=== PATIENT | female | born 1970 | race Caucasian/White ===

== ENCOUNTER → 2018-05-18 | Outpatient (REF) | payer MEDICARE, MEDICAID ==
[2018-05-18 13:08] LABS: HEMATOCRIT 33.1 % (36.0-47.0)
[2018-05-18 13:11] LABS: PERCENT SATURATION 3.2 % (13.2-45.0)
== END ==
LOC: M LAB REF 11:54
PROVIDERS: ATTEND Nurse Practitioner Adult Health
DX: D64.9 Anemia, unspecified (principal)

== ENCOUNTER 2018-06-02 09:52 | Outpatient (CLI) | payer MEDICARE, MEDICAID ==
[2018-06-02] VITALS (8 sets, daily range): BP systolic 110–155; BP diastolic 62–82
[~2018-06-02] VITALS: Ht 166.4 cm; Wt 107.5 kg
[2018-06-02] MEDS ORDERED: IRON SUCROSE 475 MG in NS 250 ML IV ONE (11:00)
[2018-06-02] MEDS ORDERED: IRON SUCROSE 25 MG in NS 50 ML IV ONE (11:00)
[2018-06-02] MEDS ORDERED: VESI5TAB2 PO (11:34)
[2018-06-02] MEDS ORDERED: LASI20TA3 PO (11:35)
[2018-06-02] MEDS ORDERED: TRAM50TA2 PO (11:35)
[2018-06-02] MEDS ORDERED: ATOR1TAB21 PO (11:36)
== END 2018-06-02 16:20 | disposition home or self-care (01) ==
LOC: M INFU 09:52
PROVIDERS: ATTEND Nurse Practitioner Adult Health
DX: D50.9 Iron deficiency anemia, unspecified (principal)
CPT/HCPCS: 96365; 96366; J1756

== ENCOUNTER → 2018-06-21 | Outpatient (REF) | payer MEDICARE, MEDICAID ==
[~2018-06-21] MED LIST: ATOR1TAB21 PO; LASI20TA3 PO; TRAM50TA2 PO; VESI5TAB2 PO
[2018-06-21 19:08] LABS: APPEARANCE, URINE HAZY (CLEAR); BACTERIA, URINE AUTO NEGATIVE (NEGATIVE); BILIRUBIN, URINE AUTO NEGATIVE (NEGATIVE); BLOOD, URINE BLOOD NEGATIVE (NEGATIVE); COLOR, URINE YELLOW (YELLOW); GLUCOSE, URINE (UA) AUTO NEGATIVE (NEGATIVE); KETONE, URINE AUTO NEGATIVE (NEGATIVE); LEUKOCYTE ESTERASE, URINE AUTO TRACE (NEGATIVE); NITRITE, URINE AUTO NEGATIVE (NEGATIVE); PROTEIN, URINE AUTO NEGATIVE (NEGATIVE); RBC, URINE AUTO 1 /HPF (0-3); SPECIFIC GRAVITY URINE AUTO 1.013 (1.002-1.035); SQUAMOUS EPITHELIAL CELL UR AU 1 /HPF (0-6); UROBILINOGEN, URINE AUTO 0.2 mg/dL (0.0-2.0); WBC, URINE AUTO 6 /HPF (0-3)
== END ==
LOC: M LAB REF 17:01
PROVIDERS: ATTEND Obstetrics & Gynecology
DX: N32.81 Overactive bladder (principal); N39.41 Urge incontinence

== ENCOUNTER → 2018-09-22 | Outpatient (REF) | payer MEDICARE, MEDICAID ==
[~2018-09-22] MED LIST changes: +ADVI200T PO; +INTR1TAB PO; +MYRB25TA PO
[2018-09-22 18:28] LABS: PERCENT SATURATION 4.6 % (13.2-45.0)
== END ==
LOC: M LAB REF 17:50
PROVIDERS: ATTEND Internal Medicine
DX: D64.9 Anemia, unspecified (principal)

== ENCOUNTER 2018-09-27 08:54 | Outpatient (CLI) | payer MEDICARE, MEDICAID ==
[~2018-09-27] VITALS: Ht 166.4 cm; Wt 107.5 kg
[~2018-09-27 08:54] MED LIST changes: -ADVI200T PO
[2018-09-27 09:04] VITALS: BP 178/85
[2018-09-27 10:00] VITALS: BP 138/64
[2018-09-27] MEDS ORDERED: IRON SUCROSE 25 MG in NS 50 ML IV ONE (10:00)
[2018-09-27] MEDS ORDERED: IRON SUCROSE 475 MG in NS 250 ML IV ONE (11:00)
[2018-09-27 11:15] VITALS: BP 136/73
[2018-09-27 12:15] VITALS: BP 160/73
[2018-09-27 13:15] VITALS: BP 142/67
[2018-09-27] MEDS ORDERED: VESI5TAB2 PO (14:30)
[2018-09-27 14:40] VITALS: BP 146/80
== END 2018-09-27 14:40 | disposition home or self-care (01) ==
LOC: M INFU 08:54
PROVIDERS: ATTEND Internal Medicine
DX: D50.9 Iron deficiency anemia, unspecified (principal)
CPT/HCPCS: 96365; 96366; J1756

== ENCOUNTER 2018-09-30 05:40 | Day surgery (SDC) | payer MEDICARE, MEDICAID ==
[2018-09-30] VITALS (8 sets, daily range): BP systolic 114–141; BP diastolic 59–91
[~2018-09-30] VITALS: Ht 170.2 cm; Wt 105.0 kg
[2018-09-30] MEDS ORDERED: LR 1,000 ML IV SCH ×2 (06:00→13:00)
[2018-09-30] MEDS ORDERED: LIDOCAINE 1% MDV 20ML VIAL SQ PRN (06:00)
[2018-09-30 06:15] LABS: HEMATOCRIT 38.4 % (36.0-47.0); HEMOGLOBIN 11.2 g/dl (12.0-15.5); MEAN CORPUSCULAR HEMOGLOBIN 20.1 pg (27.0-33.0); MEAN CORPUSCULAR HGB CONC 29.2 g/dl (32.0-36.5); MEAN CORPUSCULAR VOLUME 68.9 fl (80.0-96.0); PLATELET COUNT, AUTOMATED 426 10^3/uL (150-450); RED BLOOD COUNT 5.57 10^6/uL (4.00-5.40); WHITE BLOOD COUNT 6.8 10^3/uL (4.0-10.0)
[2018-09-30 06:52] LABS: URINE PREG TEST NEGATIVE (NEGATIVE)
[2018-09-30] MEDS ORDERED: METHYLENE BLUE 0.5% (5MG/ML) 10 ML AMP (PROVAYBLUE)(Q9968 PER 1MG) As Ordered ONE (06:54)
[2018-09-30] MEDS ORDERED: LIDOCAINE 2% INJ 100 MG/5 ML SDV (FOR ANES.) As Ordered ONE (07:12)
[2018-09-30] MEDS ORDERED: ROCURONIUM BROMIDE 50 MG/5 ML VIAL As Ordered ONE ×3 (07:12→10:21)
[2018-09-30] MEDS ORDERED: dexameTHASONE 4 MG/ML 1ML VIAL (J1100) As Ordered ONE (07:12)
[2018-09-30] MEDS ORDERED: ONDANSETRON 4MG/2ML VIAL (J2405) As Ordered ONE (07:12)
[2018-09-30] MEDS ORDERED: PROPOFOL 200 MG/20 ML VIAL As Ordered ONE (07:12)
[2018-09-30] MEDS ORDERED: fentaNYL 250 MCG/5 ML INJECTION (J3010) As Ordered ONE (07:13)
[2018-09-30] MEDS ORDERED: MIDAZOLAM INJ 2 MG/2 ML VIAL (J2250) As Ordered ONE (07:13)
[2018-09-30] MEDS ORDERED: KETOROLAC 60 MG/2 ML VIAL (J1885) As Ordered ONE (08:25)
[2018-09-30] MEDS ORDERED: SUGAMMADEX SODIUM 500 MG/5 ML VIAL (BRIDION) As Ordered ONE (08:26)
[2018-09-30] MEDS ORDERED: ePHEDrine SULFATE 25 MG/5 ML(5MG/ML) SYRINGE As Ordered ONE (09:47)
[2018-09-30] MEDS ORDERED: ceFAZolin 1GM INJ (J0690 PER 500MG) As Ordered ONE (11:48)
[2018-09-30] MEDS ORDERED: PHENYLephrine HCL 500 MCG/5 ML (100MCG/ML) SYRINGE (J2370) As Ordered ONE (11:51)
[2018-09-30] MEDS ORDERED: fentaNYL 100 MCG/2 ML INJECTION (J3010) As Ordered ONE (12:09)
[2018-09-30] MEDS ORDERED: MORPHINE 1MG/ML IN 0.9% NACL 100ML IV BAG As Ordered ONE (12:51)
[2018-09-30] MEDS ORDERED: NALBUPHINE HCL 10 MG/ML AMP (J2300) IV PRN (13:00)
[2018-09-30] MEDS ORDERED: fentaNYL 100 MCG/2 ML INJECTION (J3010) IV PRN (13:00)
[2018-09-30] MEDS ORDERED: EPIDURAL/PCA KEYS XX PRN (13:00)
[2018-09-30] MEDS ORDERED: PERCOCET 5MG/325MG TAB PO PRN (13:00)
[2018-09-30] MEDS ORDERED: NALOXONE INJ 0.4 MG/1 ML VIAL (J2310) IV PRN (13:00)
[2018-09-30] MEDS ORDERED: MORPHINE 1MG/ML IN 0.9% NACL 100ML IV BAG IV PRN (13:00)
[2018-09-30] MEDS ORDERED: ONDANSETRON 4MG/2ML VIAL (J2405) IV PRN (13:00)
[2018-09-30] MEDS ORDERED: diphenhydrAMINE INJ 50MG/ML VIAL (J1200) IV PRN (13:00)
[2018-09-30] MEDS: LR 1,000 ML IV SCH (13:15)
[2018-09-30] MEDS ORDERED: IBUPROFEN 600 MG TAB PO PRN (13:15)
[2018-09-30] MEDS ORDERED: traMADol 50 MG TAB PO PRN (13:15)
[2018-09-30] MEDS: FUROSEMIDE 20 MG TAB PO SCH (15:25)
[2018-09-30] MEDS: ATORVASTATIN 20 MG TAB PO SCH (15:26)
[2018-09-30] MEDS: SOLIFENACIN 5 MG TAB PO SCH (16:40)
--- NOTE | 2018-09-30 23:04 | RO ---
DATE OF PROCEDURE: 09/30/2018 PREPROCEDURE DIAGNOSIS: Pain, bleeding, symptomatic fibroids to the level of umbilicus. POSTPROCEDURE DIAGNOSIS: Additional diagnosis of adhesions, scarring, and endometriosis along with the fibroids, pain and bleeding. PROCEDURE: Robotic-assisted hysterectomy with bilateral salpingo-oophorectomy. Due to the patient's alteration anatomy and scarring, and endometriosis on the right side, as documented in the operative report, we also did a cystourethroscopy to evaluate that ureter, and, of course, evaluated both. SURGEON: Nella Grigsby MD [facility] NURSE: KUN Harris ANESTHESIA: General endotracheal anesthesia. DESCRIPTION OF PROCEDURE: Jessica was brought to the operating room where sufficient general endotracheal anesthesia was induced, and she was prepped, draped, and positioned in the usual sterile fashion. With the weighted speculum placed, the cervix grasped with a single-tooth tenaculum, anterior and posterior sutures placed, the uterus was sounded to 15. Then, the uterine manipulator was placed and secured in place with the #0 Vicryl retention sutures, and a Keene catheter was placed with return of clear urine, and, of course, the Keene was set up with the ability to backfill. Attention was then turned to the abdomen. As all ready noted, the patient had an immobile fibroid uterus rising up to the level of the umbilicus, so the decision was made to go about 9 cm above the umbilicus for the incision. A vertical incision was made in the midline and carefully dissected down to the rectus fascia, which was transversely incised, secured with #0 Vicryl retention sutures. Then, we carefully split the muscles in the midline and elevated and transected the posterior sheath under direct visualization and entered the peritoneum. We then placed the Yassine cannula under direct visualization in this open laparoscopic technique and started CO2 insufflation. After adequate insufflation, the peritoneal cavity was visualized. As expected, the patient has a large fibroid uterus, this is pictured, and it was, as expected, most prominent on the patient's right side. But there was also evidence of endometriosis, which was not expected, and a puckering of all of the tissues in the right adnexa caused by the endometriosis and the patient's anatomy, which, again, was not expected. We did place two left-sided and one right side port for the robot, docked the robot, had the patient in the normal position, etcetera, and then I began working at the robot. Working along the left side where we had much better access. We elevated the ovary, carefully cauterized, transected the infundibulopelvic ligament and the round ligament, and carefully dissected down the broad. There was definite evidence of endometriosis. This did not stop us from being able to identify the anatomy, but the fibroid really had altered and contorted the uterus. We were able along this side to work around anteriorly. We backfilled the bladder, so we could definitely see the uterine manipulator, fortunately, and create the bladder flap and connect the broad ligament, dissecting through the peritoneum all the way along from the left side over to the right, which was quite fortunate and helped us in our anatomical localization. We then, after getting that far, also cauterized some of the vascular supply on the left side, although this was only a partial cauterization. But we were able to see and access that quite reasonably, so, we went ahead and cauterized without any transection. I did have some trouble with the bipolar from the new kit, but we are not having that trouble now. We rolled the uterus back towards the patient's left and using the diversional therapist's assistant elevating the uterus and rotating it as well, we were able to isolate the infundibulopelvic ligament by working close to the ovary in this patient with benign disease. We were able to cauterize and transect the infundibulopelvic ligament, but as we worked towards the round, it was clear that there was another kink of tissue, which I was concerned might be ureter scarred in. So, we tried to do this dissection without transecting or cauterizing there, but there was quite a bit of vascular supply consistent and as expected with this patient having her enlarged fibroid uterus. And, in fact, that fold of tissue was the uterosacral distorted all the way up to nearly the level of the pelvic brim. Clearly one portion of this fibroid had started in the posterior cervix and pushed all that up towards the left and distorted those tissues. But at this point, we saw a fold of tissue and were worried because the puckering with the endometriosis and the fibroid had distorted the anatomy. So, we came down as close to the uterus as possible, and this did result in a little bit of bleeding from some of the uterine vessels because we had cauterized and controlled them towards the fundus, and then we disrupted them again as we went down the side of the uterus. But it was felt this was safer, adding a little bit more blood loss but safer in regard to protecting the ureter as much as possible because with the scarring of the tissue, it was not as clear as is typically the case. We were able to join up the peritoneal dissection anteriorly and peel down those tissues without cauterizing them and then work more readily. We then went back to the left side and further cauterized the uterine vasculature where the difficulty with the new bipolar was more pronounced, so we switched out to a fenestrated bipolar, which was working much better. This resulted in better control of those vessels, and we were able to start the colpotomy anteriorly after we had, of course, dissected down the bladder, and we were readily able to see it there. We were using a 30-degree down at this point to see around the fibroid uterus, but this gave us a good view, and we were able to dissect the anterior colpotomy incision pretty readily. We were able to come through the vascular supply along the left side and start to work posteriorly. As we got towards the uterosacral on the left, the distortion became more evident. There was quite a bit of distortion of the tissues. In fact, with the left uterosacral, we were able to come above it in this hysterectomy for benign disease and leave quite a bit of tissue for support for this patient present. We then rotated the uterus the other way, got better control of the uterines, which, of course, were splayed out and so there were more than one bunch of uterine blood vessel. This is a common finding in people with fibroids this size, but it meant slowing down the dissection and working very carefully through them. And with that and with rotating the uterus and using the tenaculum through the diversional therapist's assistant port, as needed, we were able to complete the colpotomy and get control of the vaginal arterials, and then begin delivering the uterus into the vagina, which, of course, would not go through whole at this size. So, we removed the patient from Trendelenburg, undocked, of course, the robot, etcetera, and then carefully brought the cervix down to the introitus, and with retractors in place, bivalved the cervix, carefully dissected off the right lateral aspect of the uterus, and then came back and carefully dissected off the left lateral aspect. Then, we still had to take that mid portion in a couple pieces, but we were able to deliver the uterus, and it weighed approximately 915 grams even though, of course, this dissection had removed all of the blood essentially, so a fairly large uterus. We then put lap in the vagina to hold the CO2 and went back to the robot and used V-Loc suture to close the cuff in the usual fashion. With the amount of scar tissue on the patient's right side, we still were a little concerned about how close we appeared to have been to ureter and the scarring really puckered the tissue, made it not as easy to see as typical. So, we went ahead and did cystourethroscopy with methylene blue given to the patient. We did see jets of blue from both ureters, and there was absence of injury to the bladder. With the cuff closed, uterus out, good hemostasis confirmed, absence of bladder or ureter injury confirmed, the trocars were removed. The four trocar sites closed, the larger one in the midline, we did fascial closure of #0 Vicryl but the other smaller #8 sites we just did skin closure using #3-0 Vicryl in a subcuticular stitch, and a dry sterile dressing was then applied. Estimated blood loss for the procedure: About 250 mL. Fluid replacement was crystalloid. Complications: None. Condition and Disposition: Jessica tolerated the procedure well. She did get a second dose of antibiotic in the operating room (OR) because it was somewhat protracted, and she was recovering in the recovery room in good condition.
[2018-10-01] MEDS: LR 1,000 ML IV SCH ×2 (00:50→05:15)
[2018-10-01 02:00] VITALS: BP 144/69
[2018-10-01 06:00] VITALS: BP 138/68
[2018-10-01 06:21] LABS: HEMATOCRIT 28.1 % (36.0-47.0); MEAN CORPUSCULAR HEMOGLOBIN 19.8 pg (27.0-33.0); MEAN CORPUSCULAR HGB CONC 29.2 g/dl (32.0-36.5); MEAN CORPUSCULAR VOLUME 67.7 fl (80.0-96.0); PLATELET COUNT, AUTOMATED 356 10^3/uL (150-450); RED BLOOD COUNT 4.15 10^6/uL (4.00-5.40); WHITE BLOOD COUNT 9.9 10^3/uL (4.0-10.0)
[2018-10-01 06:25] LABS: HEMOGLOBIN 8.2 g/dl (12.0-15.5)
[2018-10-01] MEDS: FUROSEMIDE 20 MG TAB PO SCH (09:51)
[2018-10-01] MEDS: SOLIFENACIN 5 MG TAB PO SCH (09:51)
[2018-10-01] MEDS: ATORVASTATIN 20 MG TAB PO SCH (09:51)
[2018-10-01] MEDS ORDERED: ADVI200T PO (09:57)
== END 2018-10-01 11:03 | disposition home or self-care (01) ==
LOC: M SDC 05:40 → M MSPAV 13:30 → M SDC 10-01 11:03
PROVIDERS: ATTEND Obstetrics & Gynecology
DX: N93.9 Abnormal uterine and vaginal bleeding, unspecified (principal); R10.2 Pelvic and perineal pain; D25.9 Leiomyoma of uterus, unspecified; N83.209 Unspecified ovarian cyst, unspecified side; E78.00 Pure hypercholesterolemia, unspecified; R60.0 Localized edema; D50.0 Iron deficiency anemia secondary to blood loss (chronic); M16.11 Unilateral primary osteoarthritis, right hip; G81.91 Hemiplegia, unspecified affecting right dominant side; G31.84 Mild cognitive impairment of uncertain or unknown etiology; I87.2 Venous insufficiency (chronic) (peripheral); Z79.899 Other long term (current) drug therapy; Z87.820 Personal history of traumatic brain injury
CPT/HCPCS: 36415; 58573; 84703; 85027; 86850; 86900; 86901; 88307; J0690; J1100; J1885; J2250; J2370; J2405; J3010; Q9968

== ENCOUNTER → 2018-10-12 | Outpatient (REF) | payer MEDICARE, MEDICAID ==
[~2018-10-12] MED LIST changes: +ADVI200T PO
[2018-10-12 15:50] LABS: PERCENT SATURATION 9.8 % (13.2-45.0)
[2018-10-12 15:57] LABS: FOLATE 5.7 NG/ML (>5.4)
== END ==
LOC: M LAB REF 13:19
PROVIDERS: ATTEND Nurse Practitioner Adult Health
DX: D64.9 Anemia, unspecified (principal)

== ENCOUNTER → 2019-03-28 | Outpatient (REF) | payer MEDICARE, MEDICAID | LOC: M LAB REF 17:09 | PROVIDERS: ATTEND Nurse Practitioner Adult Health | DX: G89.4 Chronic pain syndrome (principal); N94.6 Dysmenorrhea, unspecified; D64.9 Anemia, unspecified ==

== ENCOUNTER → 2019-12-01 | Outpatient (CLI) | payer MEDICARE, MEDICAID | LOC: M WUC 11:31 | PROVIDERS: ATTEND Physician Assistant | DX: S20.212A Contusion of left front wall of thorax, initial encounter (principal); S50.02XA Contusion of left elbow, initial encounter; X58.XXXA Exposure to other specified factors, initial encounter; Y92.89 Other specified places as the place of occurrence of the external cause; Y93.9 Activity, unspecified; Y99.9 Unspecified external cause status ==

== ENCOUNTER → 2022-01-27 | Outpatient (REF) | payer MEDICARE, MEDICAID ==
[2022-01-27 17:37] LABS: PHOSPHORUS LEVEL 3.3 MG/DL (2.5-4.9)
[2022-01-27 18:25] LABS: PTH INTACT 69.9 PG/ML (18.5-88.0)
== END ==
LOC: M LAB REF 16:16
PROVIDERS: ATTEND Nurse Practitioner Adult Health
DX: M80.00XA Age-related osteoporosis with current pathological fracture, unspecified site, initial encounter for fracture (principal); E78.00 Pure hypercholesterolemia, unspecified; D50.0 Iron deficiency anemia secondary to blood loss (chronic)

== ENCOUNTER 2023-07-16 07:28 | Day surgery (SDC) | payer MEDICARE, MEDICAID ==
[~2023-07-16] VITALS: Ht 170.2 cm; Wt 103.7 kg
[~2023-07-16 07:28] MED LIST changes: +ASPI81TA26 PO; +THERTAB52 PO; +VITMTA PO; +propofoL 200 MG/20 ML VIAL As Ordered ONE
[2023-07-16] MEDS: NS 1,000 ML IV ONE (07:44)
[2023-07-16 08:24] VITALS: TEMP 98.5
[2023-07-16 08:45] VITALS: BP 124/58; O2SAT 97
== END 2023-07-16 09:04 | disposition home or self-care (01) ==
LOC: M OPP 07:28
PROVIDERS: ATTEND Surgery
DX: Z12.11 Encounter for screening for malignant neoplasm of colon (principal); Z79.02 Long term (current) use of antithrombotics/antiplatelets; Z79.1 Long term (current) use of non-steroidal anti-inflammatories (NSAID); Z79.82 Long term (current) use of aspirin; Z79.891 Long term (current) use of opiate analgesic; Z79.899 Other long term (current) drug therapy